=== PATIENT | male | born 1985 | race Caucasian/White ===

== ENCOUNTER 2019-02-08 18:48 | Emergency (ER) | payer OTHER ==
[2019-02-08 18:55] VITALS: BP 135/86; PULSE 72; TEMP 98.3; BMI 29.7
[2019-02-08 20:28] LABS: BASO % 1.3 % (0-2.0); EOS % 2.5 % (0-4.5); HEMATOCRIT 43.4 % (35.4-49); HEMOGLOBIN 14.8 GM/dL (11.7-16.9); LYMPH % 23.4 % (8-40); MCHC 34.1 g/dl (32.0-35.9); MEAN CELL VOLUME 88.1 fl (80-96); MEAN PLT VOLUME 7.9 fl (7.5-11.1); MONO % 9.5 % (3.8-10.2); NEUT % 63.3 % (42.8-82.8); PLATELET COUNT 247 K/MM3 (134-434); RBC 4.92 M/mm3 (4.00-5.60); RDW 12.9 % (11.9-15.9); WHITE BLOOD COUNT 8.1 K/mm3 (4.0-10.0)
--- NOTE | 2019-02-08 20:36 | PDOC ---
Documentation entered by Snow Morales SCRIBE, acting as scribe for Princess Robertson DO. Princess Robertson, DO: This documentation has been prepared by the Andrew rodríguez Adrianna, SCRIBE, under my direction and personally reviewed by me in its entirety. I confirm that the documentation accurately reflects all work, treatment, procedures, and medical decision making performed by me. History of Present Illness - General Chief Complaint: Chest Pain Stated Complaint: CHEST PAINS Time Seen by Provider: 02/08/19 19:54 - History of Present Illness Initial Comments: The patient is a 33 year old male, with a significant PMH of anxiety, who presents to the ED for evaluation of chest pain for one day. Patient notes sudden onset substernal chest pain that radiates to the left side of his chest. He states that the pain is intermittent, with one episode of chest hotness and numbness. Patient reports one episode of nausea yesterday, but denies vomit. He endorses intermittent sweats and one episode of soft stool yesterday. He denies any aggravating or alleviating factors, and notes that the pain does not travel to his back or jaw. Patient notes the chest pain made him feel nervous and anxious, so he came to the ED for further evaluation. Denies fever, cp with inspiration, vomit, constipation, dysuria, hematuria, leg swelling, recent travel, abdominal pain, or trauma to the chest. Allergies: NKA, NKDA Surgical History: None reported Social History: Denies tobacco use. PCP: Dr. Amin Past History - Past Medical History Allergies/Adverse Reactions: Allergies Allergy/AdvReac Type Severity Reaction Status Date / Time No Known Allergies Allergy Verified 02/08/19 18:55 Home Medications: Ambulatory Orders NK [No Known Home Medication] 02/08/19 COPD: No Psychiatric Problems: Yes (ANXIETY) - Psycho Social/Smoking Cessation Hx Smoking History: Never smoked Hx Alcohol Use: Yes Drug/Substance Use Hx: No Review of Systems - Review of Systems Comments:: GENERAL/CONSTITUTIONAL: +Intermittent sweats. +Nervous. +Anxious. No fever or chills. No weakness. HEAD, EYES, EARS, NOSE AND THROAT: No change in vision. No ear pain or discharge. No sore throat. GASTROINTESTINAL: +One episode of nausea. +One episode of soft stool. No vomiting or constipation. GENITOURINARY: No dysuria, frequency, or change in urination. CARDIOVASCULAR: +Substernal chest pain that radiates to the left side of the chest. +One episode of chest hotness and numbness. No shortness of breath. RESPIRATORY: No cough, wheezing, or hemoptysis. MUSCULOSKELETAL: No joint or muscle swelling or pain. No neck or back pain. SKIN: No rash NEUROLOGIC: No headache, vertigo, loss of consciousness, or change in strength/ sensation. ENDOCRINE: No increased thirst. No abnormal weight change. HEMATOLOGIC/LYMPHATIC: No anemia, easy bleeding, or history of blood clots. ALLERGIC/IMMUNOLOGIC: No hives or skin allergy. *Physical Exam - Vital Signs Last Vital Signs Temp Pulse Resp BP Pulse Ox 98.3 F 72 18 135/86 99 02/08/19 18:50 02/08/19 18:50 02/08/19 18:50 02/08/19 18:50 02/08/19 18:50 - Physical Exam Comments: Constitutional: Awake, alert, oriented. No acute distress. Head: Normocephalic. Atraumatic Eyes: PERRL. EOMI. Conjunctivae are not pale. ENT: Mucous membranes are moist and intact. Posterior pharynx without exudates or erythema. Uvula midline. Neck: Supple. Full ROM. No lymphadenopathy. Cardiovascular: +Reproducible anterior chest wall tenderness to palpation. Regular rate. Regular rhythm. S1, S2 regular. Distal pulses are 2+ and symmetric. Pulmonary/Chest: No evidence of respiratory distress. Clear to auscultation bilaterally No wheezing, rales or rhonchi. Abdominal: Soft and non-distended. There is no tenderness. No rebound, guarding or rigidity. No organomegaly. No palpable masses. Good bowel sounds. Back: No CVA tenderness. Musculoskeletal: No edema. No cyanosis. No clubbing. Full range of motion in all extremities. Nocalf tenderness. Radial/pedal pulses are intact and 2+ bilaterally Skin: Skin is warm and dry. No petechiae. No purpura. Neurological: Alert and oriented to person, place, and time. Cranial nerves II -XII are grossly intact. Normal speech. Strength is grossly symmetric. No sensory deficits. Psychiatric: +Flat affect. Good eye contact. Heart Score/ECG Review - ECG Intrepretation Comment:: 02/08/19 20:29 sinus at 74, nl axis, nl interval, no acute st/t wave findings ED Treatment Course - LABORATORY CBC & Chemistry Diagram: 02/08/19 20:18 02/08/19 20:18 - ADDITIONAL ORDERS Additional order review: Laboratory Results 02/08/19 02/08/19 20:18 20:18 Sodium 139 Potassium 4.0 Chloride 106 Carbon Dioxide 27 Anion Gap 7 L BUN 17.9 Creatinine 0.8 Est GFR (CKD-EPI)AfAm 135.08 Est GFR (CKD-EPI)NonAf 116.55 Random Glucose 98 Calcium 8.9 Total Bilirubin 0.4 AST 50 H ALT 114 H Alkaline Phosphatase 139 H Creatine Kinase 286 Creatine Kinase Index 0.5 CK-MB (CK-2) 1.6 Troponin I < 0.02 Total Protein 7.4 Albumin 4.2 02/08/19 20:18 RBC 4.92 MCV 88.1 MCHC 34.1 RDW 12.9 MPV 7.9 Neutrophils % 63.3 Lymphocytes % 23.4 Monocytes % 9.5 Eosinophils % 2.5 Basophils % 1.3 - RADIOLOGY Radiology Studies Ordered: Category Date Time Status CHEST PA & LAT [RAD] Stat Radiology 02/08/19 20:14 Taken ABDOMEN US -LIMITED [US] Stat Ultrasound 02/08/19 21:26 Completed - Medications Given in the ED: ED Medications Discontinued Medications Generic Name Dose Route Start Last Admin Trade Name Freq PRN Reason Stop Dose Admin Ibuprofen 600 mg 02/08/19 20:45 02/08/19 21:04 Motrin - PO 02/08/19 20:46 600 mg ONCE ONE Administration Medical Decision Making - Medical Decision Making 02/08/19 20:38 a/p: 33yo male with chest wall pain since yesterday -denies trauma, denies productive cough, denies sob -pt denies radiation of the pain -denies f/c -no lightheaded or dizziness -denies abd pain, n/v/d -no diaphoresis -reproducible chest wall pain -will send labs, ekg, cxr -will give motrin 600mg for pain 02/08/19 21:28 elevated lft ultrasound ordered trop neg labs reviewed cxr clear 02/08/19 22:47 fatty change in the liver on ultrasound pt with neg trop atypical cp stable for dc to home 02/08/19 22:54 I, Dr. Princess Robertson, DO, attest that this document has been prepared under my direction and personally reviewed by me in its entirety. I further attest, that it accurately reflects all work, treatment, procedures and medical decision -making performed by me. Discharge - Discharge Information Problems reviewed: Yes Clinical Impression/Diagnosis: Chest wall pain, Elevated LFTs, Fatty infiltration of liver Condition: Stable Disposition: HOME - Admission No - Follow up/Referral Referrals: Zay Amin MD [Primary Care Provider] - - Patient Discharge Instructions Patient Printed Discharge Instructions: DI for Atypical Chest Pain, DI for Nonalcoholic Fatty Liver Disease Additional Instructions: Please take ibuprofen as discussed for pain at home. Please follow up with your PMD. Please watch your diet given the fatty changes seen in the liver. Please return to the ED with any further concerns or complaints. - Post Discharge Activity
[2019-02-08] MEDS ORDERED: IBUPROFEN 600 MG TABLET (FP) PO ONE ×2 (20:45→20:58)
[2019-02-08 21:05] LABS: ALBUMIN 4.2 g/dl (3.4-5.0); BILIRUBIN,TOTAL 0.4 mg/dL (0.2-1); BLOOD UREA NITROGEN 17.9 mg/dL (7-18); CALCIUM 8.9 mg/dL (8.5-10.1); CREATININE 0.8 mg/dL (0.55-1.3); TOT PROT 7.4 g/dl (6.4-8.2)
--- NOTE | 2019-02-10 14:37 | EKG ---
Test Reason : Blood Pressure : / mmHG Vent. Rate : 073 BPM Atrial Rate : 073 BPM P-R Int : 160 ms QRS Dur : 086 ms QT Int : 390 ms P-R-T Axes : 052 048 043 degrees QTc Int : 429 ms NORMAL SINUS RHYTHM NORMAL ECG WHEN COMPARED WITH ECG OF 25-DEC-2007 04:01, NO SIGNIFICANT CHANGE WAS FOUND Confirmed by PRASHANTH ELLIS MD ([id number]) on 02/10/2019 2:36:21 PM Referred By: Confirmed By:PRASHANTH ELLIS MD
== END 2019-02-08 22:57 | disposition home or self-care (01) ==
LOC: JER 18:48
DX: R07.89 Other chest pain (principal); R94.5 Abnormal results of liver function studies; K76.0 Fatty (change of) liver, not elsewhere classified; F41.9 Anxiety disorder, unspecified
CPT/HCPCS: 36415; 71046-TC-FY; 76705-TC; 80053; 82550; 82553; 84484; 85025; 93005; 93010; 99283-25

== ENCOUNTER 2021-05-13 16:59 | Emergency (ER) | payer OTHER ==
[2021-05-13 17:40] VITALS: TEMP 97.9; BMI 23.5
[2021-05-13 19:21] VITALS: BP 123/70; PULSE 94
== END 2021-05-13 19:23 | disposition home or self-care (01) ==
LOC: JER 16:59
DX: F41.9 Anxiety disorder, unspecified (principal); R03.0 Elevated blood-pressure reading, without diagnosis of hypertension
CPT/HCPCS: 71046-TC-FY; 99283-25

== ENCOUNTER 2021-08-24 00:53 | Emergency (ER) | payer OTHER ==
[2021-08-24 01:07] VITALS: BP 142/91; PULSE 85; TEMP 98.2; BMI 29.7
[2021-08-24] MEDS ORDERED: predniSONE 20 MG TABLET (UD) PO ONE (01:35)
[2021-08-24] MEDS ORDERED: ALBUTEROL SO4 2.5/IPRATROPIUM 0.5 INH SOL 3 ML VIAL.NEB. NEB ONE (01:44)
[2021-08-24] MEDS ORDERED: predniSONE 20 MG TABLET (UD) ONE (01:45)
[2021-08-24] MEDS ORDERED: ALBUTEROL SO4 2.5/IPRATROPIUM 0.5 INH SOL 3 ML VIAL.NEB. NEB SCH (01:45)
[2021-08-24] MEDS: ALBUTEROL SO4 2.5/IPRATROPIUM 0.5 INH SOL 3 ML VIAL.NEB. NEB SCH ×2 (01:54→01:55)
[2021-08-24] MEDS ORDERED: AZITHROMYCIN 500 MG TABLET PO ONE (03:45)
[2021-08-24] MEDS ORDERED: AZITHROMYCIN 250 MG TABLET ONE (03:52)
[2021-08-25 20:07] LABS: SARS-CoV-2 NAA Not Detected (Not Detected)
== END 2021-08-24 04:00 | disposition home or self-care (01) ==
LOC: JER 00:53
PROC: 3E0F7GC Introduction of Other Therapeutic Substance into Respiratory Tract, Via Natural or Artificial Opening (ICD-10-PCS; principal; 2021-08-24)
DX: J18.8 Other pneumonia, unspecified organism (principal); J06.9 Acute upper respiratory infection, unspecified
CPT/HCPCS: 71046-TC-FY; 87804; 99284-25; C9803-CS; U0003; U0005

== ENCOUNTER 2022-08-29 18:17 | Emergency (ER) | payer OTHER ==
[2022-08-29 18:36] VITALS: RESP 18; TEMP 98.6; BMI 28.1
[2022-08-29] MEDS ORDERED: FAMOTIDINE 20 MG/50 ML IVPB 20 MG/50 ML MG IVPB ONE ×2 (18:51→19:00)
[2022-08-29] MEDS ORDERED: MAG HYDROX/AL HYDROX/SIMETH -MYLANTA- ORAL SUSPENSION PO ONE (18:51)
[2022-08-29] MEDS ORDERED: LACTATED RINGERS SOLUTION 1000 ML INFUS.BAG IV ONE (18:52)
[2022-08-29] MEDS ORDERED: MAG HYDROX/AL HYDROX/SIMETH 30 ML UNIT-DOSE CUP ONE (19:00)
[2022-08-29 19:20] LABS: BASO % 1.2 % (0-2.0); EOS % 3.3 % (0-4.5); HEMATOCRIT 40.6 % (35.4-49); HEMOGLOBIN 14.6 GM/dL (11.7-16.9); LYMPH % 24.1 % (8-40); MCH 30.8 pg (25.7-33.7); MEAN CELL VOLUME 85.4 fl (80-96); MEAN PLT VOLUME 8.6 fl (7.5-11.1); MONO % 9.2 % (3.8-10.2); NEUT % 62.2 % (42.8-82.8); PLATELET COUNT 221 10^3/uL (134-434); RBC 4.75 M/mm3 (4.00-5.60); RDW 13.3 % (11.9-15.9)
[2022-08-29 19:39] LABS: CALCIUM 9.4 mg/dL (8.5-10.1)
[2022-08-29 19:40] LABS: BLOOD UREA NITROGEN 15.7 mg/dL (7-18)
[2022-08-29 19:42] LABS: CREATININE 0.7 mg/dL (0.55-1.3)
[2022-08-29 19:44] LABS: BILIRUBIN,TOTAL 0.3 mg/dL (0.2-1); TOT PROT 7.5 g/dl (6.4-8.2)
[2022-08-29 20:30] VITALS: BP 122/78; PULSE 70
== END 2022-08-29 20:30 | disposition home or self-care (01) ==
LOC: JER 18:17
PROC: 3E033GC Introduction of Other Therapeutic Substance into Peripheral Vein, Percutaneous Approach (ICD-10-PCS; principal; 2022-08-29)
DX: R10.12 Left upper quadrant pain (principal)
CPT/HCPCS: 36415; 80053; 83690; 85025; 99284-25

== ENCOUNTER 2022-11-12 18:40 | Emergency (ER) | payer OTHER ==
[2022-11-12 18:46] VITALS: BP 149/95; PULSE 85; RESP 18; TEMP 99.3; BMI 26.6
[2022-11-12 20:37] LABS: BASO % 1.2 % (0-2.0); EOS % 1.9 % (0-4.5); HEMATOCRIT 43.3 % (35.4-49); HEMOGLOBIN 14.5 GM/dL (11.7-16.9); LYMPH % 15.1 % (8-40); MCH 29.3 pg (25.7-33.7); MCHC 33.4 g/dl (32.0-35.9); MEAN CELL VOLUME 87.8 fl (80-96); MEAN PLT VOLUME 8.6 fl (7.5-11.1); MONO % 7.7 % (3.8-10.2); NEUT % 74.1 % (42.8-82.8); PLATELET COUNT 213 10^3/uL (134-434); RBC 4.94 M/mm3 (4.00-5.60); RDW 13.2 % (11.9-15.9); WHITE BLOOD COUNT 9.9 K/mm3 (4.0-10.0)
[2022-11-12 20:52] LABS: POTASSIUM 4.1 mmol/L (3.5-5.1)
[2022-11-12 20:53] LABS: CALCIUM 9.7 mg/dL (8.5-10.1)
[2022-11-12 20:54] LABS: ALBUMIN 4.2 g/dl (3.4-5.0); BLOOD UREA NITROGEN 14.1 mg/dL (7-18)
[2022-11-12 20:57] LABS: CREATININE 0.8 mg/dL (0.55-1.3)
[2022-11-12 20:58] LABS: BILIRUBIN,TOTAL 0.3 mg/dL (0.2-1); TOT PROT 7.4 g/dl (6.4-8.2)
== END 2022-11-12 21:31 | disposition home or self-care (01) ==
LOC: JER 18:40
DX: R07.89 Other chest pain (principal); R06.02 Shortness of breath; R23.2 Flushing
CPT/HCPCS: 36415; 71046-TC-FY; 80053; 82550; 82553; 84484; 85025; 93005; 93010; 99285-25